=== PATIENT | female | born 1995 | race Two or more races ===

== ENCOUNTER 2018-05-29 18:02 | Emergency (ER) | payer OTHER ==
[2018-05-29] MEDS ORDERED: EPINEPHRine HCL 1 mg/mL 1mL Amp SUBQ STA (18:33)
[2018-05-29] MEDS ORDERED: EPINEPHRine HCL 1 mg/mL 1mL Amp ONE ×2 (18:37→20:04)
--- NOTE | 2018-05-29 18:39 | ED Physician Chart ---
ED Chief Complaint/HPI - Patient Information Date Seen:: 05/29/18 Time Seen:: 18:25 Chief Complaint:: rash History of Present Illness:: Patient's had a pruritic burning rash widespread the most severe on the palmar right forearm, wrist and palm since last night. No throat swelling or difficulty breathing. No new foods, soaps, contactants. Allergies:: Allergies Allergy/AdvReac Type Severity Reaction Status Date / Time No Known Allergies Allergy Verified 05/29/18 18:26 Vitals:: Vital Signs - 8 hr 05/29/18 18:29 Temp 98.5 F HR 75 RR 18 O2 Sat % 97 Historian:: Patient Review:: Nurse's Note Reviewed ED Review of Systems - Review of Systems General/Constitutional: No fever, No chills Skin: Rash Head: No headache Eyes: No loss of vision ENT: No earache Neck: No neck pain, No swelling Cardio Vascular: No chest pain, No palpitations Pulmonary: No SOB GI: No nausea, No vomiting, No diarrhea Musculoskeletal: No bone or joint pain Endocrine: No polyuria Psychiatric: No prior psych history, No depression Hematopoietic: No bruising Allergic/Immuno: No urticaria Neurological: No syncope, No focal symptoms Family Medical History - Family Member Aunt Living Status: Still Living Hx Family Diabetes: Yes Grandfather Living Status: Still Living Hx Family Cancer: Yes ED Physical Exam - Physical Examination General/Constitutional: Well-developed, well-nourished, Alert, No distress Head: Atraumatic Eyes: Lids, conjuctiva normal, PERRL Other Skin comments:: Urticaria on the extremities most marked on the distal volar right forearm, wrist and palm; scattered rash elsewhere ENMT: External ears, nose nl, TM canals nl, Nasal exam nl, Lips, teeth, gums nl , Oropharynx nl, Tonsils nl Neck: No nuchal rigidity Respiratory: Nl effort/Exclusion, Clear to Auscultation, No Wheeze/Rhonchi/Rales Cardio Vascular: RRR, No murmur, gallop, rubs, NL S1 S2 GI: No hernia, Normal BS's Extremities: Normal digits & nails Neuro/Psych: No focal deficits ED Assessment - Assessment General Assessment: At 1957 patient's rash was unchanged in appearance but the itching had decreased. Will give this patient a second 0.3 mg of epinephrine subcutaneously and 25 mg of Atarax orally and then discharge the patient. The allergen which caused the urticaria is uncertain ED Septic Shock - . Is Septic Shock (SBP<90, OR Lactate>4 mmol\L) present?: No - <6hrs of presentation: Vital Signs: Vital Signs - 8 hr 05/29/18 18:29 Temp 98.5 F HR 75 RR 18 O2 Sat % 97 ED Reassessment (Disposition) - Reassessment Reassessment Condition:: Improved - Diagnosis Diagnosis:: Urticaria - Aftercare/Follow up Instructions Aftercare/Follow-Up Instructions:: Refer to Discharge Instructions - Patient Disposition Discharge/Transfer:: Home Condition at Disposition:: Stable, Improved
== END 2018-05-29 20:32 | disposition home or self-care (01) ==
LOC: ER 18:02
DX: L50.9 Urticaria, unspecified (principal)
CPT/HCPCS: 99283; 96372; J0171 ×2; Z7502